=== PATIENT | female | born 1945 | race Caucasian/White ===

== ENCOUNTER 2016-06-20 14:18 | Emergency (ER) | payer BC, MEDICARE ==
[2016-06-20] MEDS ORDERED: IOPAMIDOL 370 (76%) 100 ML VIAL IV ONE (14:19)
[2016-06-20 15:29] LABS: ABSOLUTE NEUTROPHIL COUNT 7.2 K/mm3 (1.8-7.7); BASO % 0.2 % (0.2-1.0); EOS % 0.2 % (0.9-2.9); HEMATOCRIT 34.7 % (37.0-47.0); HEMOGLOBIN 11.4 gm/l (12.0-16.0); IMM NEUT # 0.1 K/mm3 (0-0.2); IMM NEUT% 0.9 % (0-1); LYMPH # 0.6 (1.0-4.8); LYMPH % 7.3 % (15-45); MEAN CELL VOLUME 93.3 fl (81.0-99.0); MEAN CORPUSCULAR HEMOGLOBIN 30.6 pg (27.0-31.0); MEAN CORPUSCULAR HGB CONC 32.9 g/dl (33.0-37.0); MEAN PLATELET VOLUME 9.4 fl (7.4-10.4); MONO # 0.6 (0.0-0.8); MONO % 6.7 % (4-12); NEUT % 84.7 % (43-75); PLATELET COUNT 406 K/mm3 (130-400); RED CELL DISTRIBUTION WIDTH 15.2 % (11.5-14.5)
[2016-06-20 15:33] LABS: INR 1.05
[2016-06-20 15:36] LABS: ALB/GLOB RATIO 0.8 (>1.0); ALBUMIN 3.2 gm/dL (3.5-5.7); CALCIUM 9.2 mg/dL (8.6-10.3)
--- NOTE | 2016-06-20 15:49 | CT ---
INDICATION: Patient status post VATS esophageal procedure with rupture. Shortness of breath. COMPARISON: None TECHNIQUE: Helical scan mode CT of the Thorax with 2 mm collimated images were obtained after uneventful intravenous contrast administration of 80 of Isovue-[id number]. Sagittal and coronal reformations with high resolution lung algorithm images were also created at this time. Maximal intensity projection images and 3-D volumetric sequences were created at a separate, dedicated workstation. DLP: 663.7 FINDINGS: There are no pulmonary arterial filling defects. Patient breathing motion artifact does limit assessment. Moderate right pneumothorax with collapse. No shift of the cardiomediastinal contents. Multiloculated right greater than left moderate to large effusions. The central airways are widely patent. There is no axillary, mediastinal or hilar adenopathy. The heart and great vessels opacify normally. Posterior pneumomediastinum is present from the patient's esophageal rupture. Limited evaluation of the upper abdomen demonstrates no gross abnormalities. Subcutaneous emphysema is noted within the left lateral chest wall likely relating to the postsurgical approach. A few scattered areas of subcutaneous emphysema are no also noted at the right posterior soft tissues and apex. Review of bone windows demonstrates no osteoblastic or lytic lesions. Mild degenerative changes are present. Spine maintains anatomic alignment. IMPRESSION: 1. Negative for pulmonary embolism. 2. Findings of esophageal rupture with multiloculated fluid collections, pneumothorax, and posterior pneumomediastinum. Other findings as above. Findings were called to Dr. Marin at approximately 1542 hours on 06/20/2016.
[2016-06-20] MEDS ORDERED: PIPERACILLIN-TAZO PREMIX BAG 50 ML IV ONE (16:49)
[2016-06-20] MEDS ORDERED: FENTANYL 100 MCG/2 ML VIAL ONE ×3 (17:04→20:24)
[2016-06-20] MEDS ORDERED: ONDANSETRON 4 MG/2ML 2 ML VIAL ONE (17:04)
--- NOTE | 2016-06-20 17:30 | RAD ---
EXAMINATION : CXR FOR PLACEMENT/LINE or TUBE HISTORY: Right hydropneumothorax. Esophageal rupture chest tube placement. COMPARISONS: CT scan dated 06/20/2016. FINDINGS: A right approach chest tube is noted. The distal port overlies the right heart border. Right pleural effusion is noted. There is a right pneumothorax which appears to been reduced in comparison to the recent CT scan. Cardiomegaly is noted. There is retrocardiac opacity as well. Moderate-sized left pleural effusion//consolidation is evident. Some subcutaneous air is noted in the left chest wall. Changes are also noted in the supraclavicular distributions. IMPRESSION: Satisfactory radiographic positioning right sided chest tube. There are radiographic findings compatible with esophageal rupture with subcutaneous emphysema basilar effusions. Cardiomegaly is noted.
[2016-06-20] MEDS ORDERED: DILTIAZEM HCL 5 MG/ML 5ML VIAL IV ONE (18:18)
[2016-06-20] MEDS ORDERED: CALCIUM GLUCONATE 1,000 MG/10 ML VIAL ONE (18:18)
[2016-06-20 19:25] LABS: BAND 6 % (0-10); BASOPHIL 0 % (0-1); EOSINOPHIL 0 % (1-3); LYMPHOCYTE 8 % (15-45); MONOCYTE 6 % (4-12); NEUTROPHILS 80 % (43-75); PLATELET ESTIMATE INCREASED (NORMAL); TOTAL CELLS COUNTED 100
[2016-06-20] MEDS ORDERED: PHENYLEPHRINE 10 MG in SODIUM CHLORIDE 0.9% 249 ML IV PRN (19:49)
== END 2016-06-20 20:45 | disposition other institution (70) ==
LOC: ED 14:18
DX: K22.3 Perforation of esophagus (principal); I48.91 Unspecified atrial fibrillation; I10 Essential (primary) hypertension
CPT/HCPCS: 83605; 85025; 80053; 83735; 85610; 84484 ×2; 71275; 96375 ×4; 96376 ×2; 99291; 96361; 96365; 96367; 99292 ×5; 32551 ×2; 93005 ×2; 99285; J0610; J3010 ×3; J2370; J2405; J2543; J7050; Q9967